=== PATIENT | male | born 1970 | race Asian ===

== ENCOUNTER 2019-05-14 10:54 | Day surgery (SDC) | payer OTHER ==
[2019-05-11 11:14] VITALS: Ht 175.3 cm; Wt 122.1 kg
[2019-05-14] VITALS (12 sets, daily range): BP systolic 111–134; BP diastolic 75–88; PULSE 96–108; RESP 16–26
[~2019-05-14] VITALS: Ht 175.3 cm; Wt 122.1 kg
--- NOTE | 2019-05-14 06:13 | HPN ---
Date/Time of Note Date/Time of Note DATE: 05/14/19 TIME: 06:12 Interval H&P Admission Note Pt. seen H&P reviewed: No system changes JERI CURTIS MD May 14, 2019 06:13
--- NOTE | 2019-05-14 06:16 | OPR ---
Date/Time of Note Date/Time of Note DATE: 05/14/19 TIME: 06:13 Operative Report Procedure Date: May 14, 2019 Preoperative Diagnosis Left knee medial meniscus tear Postoperative Diagnosis 1. Left knee extensive medial plica 2. 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 Left knee arthroscopic medial synovial plica resection 2. Left knee arthroscopic chondroplasty of patella Surgeon see signature line Thread Drawer Moise Lamb PA-C Anesthesia Type: general Estimated Blood Loss: minimal Transfusion none Specimen None Grafts/Implants none Complications none Pt Condition Post Procedure: stable Disposition: PACU Procedure Description CAMP MAINTENANCE SUPERVISOR SURGEON: Moise Lamb PA-C was asked to be present at my request as a result of the complexity associated with this procedure including positioning the extremity and manipulation of the arthroscope as a surgeon in [place] instrumentation. In my opinion the assistance offered by regional vice president surgical sales is insufficient and he should be compensated for his time. PROCEDURE IN DETAIL: Following the administration of general endotracheal anest hesia supplemented with a a local anesthetic, the patient was placed in the supine position. The left lower extremity was examined under anesthesia. Range of motion at this point was from full extension to approximately 100 degrees of flexion. There is a mild effusion. There was moderate medial crepitus. Further examination of the ligamentous structures revealed no significant Bowen's and no evident posterior or lateral instability. Sterile prep and drape was then undertaken of the left lower extremity. Anterior portals were made and diagnostic arthroscopy revealed there was a very thickened medial synovial plica which appeared to be traumatic. There was significant reactive synovial tissue with what appeared to be perhaps a partial tear of the plica. In addition, the patella had a significant area of the osteophyte along the medial facet. Significant softening was noted in an area from about 2 cm proximal to distal extending 5 to 7 mm into the more lateral aspect of the patella. Patellar tracking was normal. Very thickened medial synovial ridge was then excised back to the base of the capsule. In addition, chondroplasty of the patella was then undertaken resecting the osteophyte and stabilizing the area of chondral articular damage. In the end, there is an area of 2 cm from proximal to distal and about 7 mm into the lateral side where there was grade 3 chondral articular damage. The medial joint space was then entered the medial structures including the articular cartilage on the meniscus were probed and visualized and no abnormalities were noted. Despite what appeared to be perhaps an extruded meniscus on the MRI, there was no evident tearing or instability of the meniscus. In addition, probing of the articular surfaces revealed no significan t softening. The lateral joint space was then entered and the lateral articular cartilage as well as the lateral meniscus were probed and visualized with no abnormalities being noted. The central notch was then identified. The PCL was normal. The ACL was also normal. The joint was irrigated thoroughly. The wounds were covered with Steri-Strips. A sterile dressing was used for the final cover. Estimated blood loss was procedure was minimal. The patient was awakened and transported to recovery room in a stable condition. JERI CURTIS MD May 14, 2019 06:16
[~2019-05-14 10:54] MED LIST: ATOR20TA38 PO; BUPIVACAINE 0.5% (SDV) 30 ML, morphine SULFATE (PF) 8 MG, EPINEPHrine 0.3 MG, KETOROLAC... IRR SCH; CEFAZOLIN 2 GM/50 ML (PMX) 50 ML IVPB ONE; DEXAMETHASONE 2 MG TAB PO ONE; GABAPENTIN 300 MG CAP PO ONE; METF-849 PO
[2019-05-14] MEDS ORDERED: BUPIVACAINE 0.5%/EPI (SDV) 30 ML INJ ONE (12:38)
--- NOTE | 2019-05-14 13:41 | PREAC ---
Date/Time of Note Date/Time of Note DATE: 05/14/19 TIME: 13:40 Anesthesia Eval and Record Evaluation Time Pre-Procedure Interview DATE: 05/14/19 TIME: 13:40 Age 48 Sex male NPO: 8 hrs Preoperative diagnosis knee pain Planned procedure knee arthroscopy Past Medical History Past Medical History: Includes Cardio: HTN, Dyslipidemia Endo: Diabetes Pulm: Sleep Apnea GI: Morbid obesity Surgery & Anesthesia Issues No known issue Meds Anticoagulation: No Beta Kwame within 24 hr: No Reason Beta Kwame not given: Pt. not on B-Kwame Reported Medications Metformin* (Glucophage*) 500 Mg Tab, 500 MG PO WITH BREAKFAST, #30 TAB 05/11/19 Atorvastatin Calcium* (Atorvastatin Calcium*) 20 Mg Tablet, 20 MG PO QHS, #30 TAB 05/11/19 Meds reviewed: Yes Allergies Coded Allergies: No Known Allergy (Unverified , 05/14/19) Allergies Reviewed: Yes Labs/Studies Labs Reviewed: Reviewed by anesthesiologist test: N/A Pre-procedure Exam Last vitals Vital Signs Date Temp Pulse Resp B/P (MAP) Pulse Ox O2 O2 Flow FiO2 Time Delivery Rate 05/14/19 98.0 96 16 130/88 94 Room Air 11:46 (102) Airway: Adequate mouth opening, Adequate thyromental dist Mallampati: Mallampati III Teeth: Normal Lung: Normal Heart: Normal ASA Physical Status ASA physical status: 3 Emergency: None Planned Anesthetic General/MAC: ETT, LMA Pre-operative Attestations Prior to commencing anesthesia and surgery, the patient was re-evaluated, there was verification of: *The patient's identity *The results of appropriate recent lab work and preoperative vital signs *The above evaluation not changing prior to induction *Anesthetic plan, risk benefits, alternative and complications discussed with patient/family; questions answered; patient/family understands, accepts and wishes to proceed. ROCHELLE GAN May 14, 2019 13:41
[2019-05-14] MEDS ORDERED: PROPOFOL 40 ML ONE ×2 (13:52→14:23)
[2019-05-14] MEDS ORDERED: FENTAnyl 50 MCG/ML VIAL ONE (13:52)
[2019-05-14] MEDS ORDERED: FENTAnyl 50 MCG/ML VIAL IV PRN ×3 (14:00)
[2019-05-14] MEDS ORDERED: MEPERIDINE 25 MG INJ IV PRN (14:00)
[2019-05-14] MEDS ORDERED: METOCLOPRAMIDE 10 MG INJ IV PRN (14:00)
[2019-05-14] MEDS ORDERED: HYDROmorphONE 1 MG/5 ML IV SYRINGE IV PRN ×3 (14:00)
[2019-05-14] MEDS ORDERED: ALBUTEROL 0.083% (NEB) 2.5 MG/3 ML AMP HHN PRN (14:00)
[2019-05-14] MEDS ORDERED: DIPHENHYDRAMINE 50 MG INJ IV PRN (14:00)
[2019-05-14] MEDS ORDERED: ONDANSETRON 4 MG INJ IV PRN (14:00)
[2019-05-14] MEDS ORDERED: SUCCINYLCHOLINE CHLORIDE 100 MG/5 ML SYG IV ONE (14:23)
[2019-05-14] MEDS ORDERED: ROCURONIUM 50 MG INJ ONE (14:23)
[2019-05-14] MEDS ORDERED: SUGAMMADEX SODIUM 200 MG/2 ML VIAL IV ONE ×2 (14:23)
[2019-05-14] MEDS ORDERED: LIDOCAINE 100 MG SYRINGE ONE (14:23)
--- NOTE | 2019-05-14 14:30 | PDOCDIS ---
Discharge Instructions DIAGNOSIS Discharge Diagnosis Left knee chondromalacia CONDITION [id number] Patient Condition: [id number] Good HOME CARE INSTRUCTIONS: [id number] Diet Instructions: [id number] Regular ACTIVITY: [id number] Activity Restrictions: [id number] Rest between Activity Keep Limb Elevated [id number] Bathing Restrictions: [id number] Shower FOLLOW UP/APPOINTMENTS Follow-up Plan 2 weeks in the office SCHOOL/WORK RELEASE May return to School/Work with: With Restrictions School/Work Release Comment: Crutches as necessary JERI CURTIS MD May 14, 2019 14:30
[2019-05-14] MEDS ORDERED: DEXAMETHASONE 4 MG/ML 5 ML INJ ONE (14:41)
--- NOTE | 2019-05-14 15:54 | PAC ---
Date/Time of Note Date/Time of Note DATE: 05/14/19 TIME: 15:53 Post-Anesthesia Notes Post-Anesthesia Note Last documented vital signs Vital Signs Date Temp Pulse Resp B/P (MAP) Pulse Ox O2 O2 Flow FiO2 Time Delivery Rate 05/14/19 98.0 96 16 130/88 94 Room Air 11:46 (102) Activity: WNL Respiratory function: WNL Cardiovascular function: WNL Mental status: Baseline Pain reasonably controlled: Yes Hydration appropriate: Yes Nausea/Vomiting absent: Yes ROCHELLE GAN May 14, 2019 15:53
== END 2019-05-14 16:37 | disposition home or self-care (01) ==
LOC: SDS 10:54
PROVIDERS: ATTEND Orthopaedic Surgery
DX: M67.52 Plica syndrome, left knee (principal); M22.42 Chondromalacia patellae, left knee; E11.9 Type 2 diabetes mellitus without complications; I10 Essential (primary) hypertension; E78.5 Hyperlipidemia, unspecified; Z79.84 Long term (current) use of oral hypoglycemic drugs
CPT/HCPCS: 29877; 82962; J0171; J0690; J1100; J1885; J2001; J2274; J3010; J3370